=== PATIENT | female | born 1950 | race Caucasian/White ===

== ENCOUNTER 2017-06-09 | Inpatient (IN) | payer MEDICARE, MEDICAID, SELFPAY ==
[2017-06-09] VITALS (14 sets, daily range): BP systolic 129–176; BP diastolic 70–91; PULSE 64–98; RESP 15–95; TEMP 36.6–36.7; O2SAT 92–96; BMI 21.9; BMI 22.6; BMI 22.7
--- NOTE | 2017-06-09 00:57 | EKG12_ITS ---
Test Reason : CP Blood Pressure : / mmHG Vent. Rate : 087 BPM Atrial Rate : 087 BPM P-R Int : 152 ms QRS Dur : 088 ms QT Int : 374 ms P-R-T Axes : 078 072 072 degrees QTc Int : 450 ms Normal sinus rhythm Normal ECG Confirmed by VIANCA HUTCHINSON ([id number]), sports editor ELSA FLORIAN ([id number]) on 06/10/2017 11:34:01 AM Referred By: TRACE Confirmed By:VIANCA HUTCHINSON
--- NOTE | 2017-06-09 00:57 | CT_ITS ---
STUDY: CT ABDOMEN AND PELVIS WITH CONTRAST REASON FOR EXAM: Female, 66 years old. Abdominal pain. History of pancreatic cancer RADIATION DOSAGE (If Supplied By Facility): CTDIvol = ( 10.59 ) mGy, DLP = ( 545.51 ) mGycm TECHNIQUE: Transaxial images were obtained from the dome of the diaphragm to the symphysis pubis without oral contrast. 100ML ml of Isovue 300 contrast was administered. Sagittal and coronal images were reconstructed. Individualized dose optimization techniques were used for this CT. COMPARISON: 04/21/2017 FINDINGS: There is dependent atelectasis versus scar formation at the lung bases. The visualized portions of the heart are within normal limits. There is a calcified lesion in the right posterior hepatic dome which is unchanged. There is mild to moderate intrahepatic biliary duct dilatation. Metallic common bile duct stent remains in place. Calcified stone is seen in the neck of the gallbladder with marked gallbladder wall thickening, unchanged from prior imaging.. Normal spleen. Pancreatic duct dilatation noted. There is subtle hypoattenuation within the uncinate process of the pancreas adjacent to the common bile duct stent. Normal bilateral adrenal glands. Normal right kidney. Normal left kidney. Normal bilateral ureters. There is a small hiatal hernia. Stomach is otherwise unremarkable. Dilated air and fluid-filled loops of small bowel seen throughout the left mid abdomen. Definitive point of transition seen in the left lower pelvic cavity immediately anterior to the left iliac vasculature and psoas major muscle on sequence 2 images 60 through 78. Ileal loops distal to this point are completely decompressed, as is the colon. Left lower quadrant colostomy is noted. The appendix is visualized and is normal. Moderate atherosclerotic calcification of the abdominal vasculature. Normal inferior vena cava. Normal retroperitoneum. Normal urinary bladder. There is free free fluid in the left paracolic gutter which tracks into the pelvis. There is no free air. Normal abdominal wall. Compression fracture deformity of the T12 vertebral body which is chronic. CT/Abdomen/Pelvis W IV Cont ONLY IMPRESSION: 1. Small bowel obstruction with focal transition point seen in the left mid pelvic cavity. 2. Cholelithiasis with marked gallbladder wall thickening, unchanged from prior imaging. 3. Ill-defined hypoattenuated lesion within the uncinate process of the pancreas abutting the indwelling metallic common bile duct stent, with associated moderate pancreatic duct dilatation, most consistent with pancreatic adenocarcinoma. 4. Free fluid tracking down the left paracolic gutter into the pelvis. 5. Partially calcified mass in the right posterior hepatic dome which is unchanged from prior imaging and which could be more definitively characterized with MR imaging of the liver. 6. Chronic T12 compression fracture deformity. Electronically Signed: Andi Cano MD at 3:43 EST Tel , Service support ,
[2017-06-09] MEDS: HYDROmorphone 1 MG/ML Syringe IV ×6 (01:05→22:49)
[2017-06-09] MEDS: Ondansetron 4 MG/2 ML Vial IV ×5 (01:05→19:09)
[2017-06-09] MEDS: 0.9% Normal Saline 1,000 ML 1000 ML IV (01:05)
--- NOTE | 2017-06-09 01:06 | ED.VISSUMM ---
- ER Visit Summary Date of Service: 06/09/17 Chief Complaint: Abdominal pain History of Present Illness: The patient is a 66 F with complicated past medical history significant for pancreatic cancer and recent hospitalization at [facility] for colonic perforation with ostomy placement presents to the emergency department with rather sudden onset abdominal pain. The patient has recent diagnosis of pancreatic cancer. She was on chemotherapy with the thought that it would shrink her tumor and then she would have surgical intervention. Her last chemotherapy was at the end of March. Early in April, she had sudden onset abdominal pain with vomiting. She was seen here in the emergency department and was found to have a colonic perforation. The patient was transferred to [facility]. There, she had primary ostomy done. She was on broad-spectrum antibiotics. Her postoperative course was complicated by ileus and pancreatic duct obstruction. She had NG placement and ERCP done. She was finally tolerating some oral and was started on TPN and was discharged home. She had been doing well until tonight. She had sudden onset sharp stabbing pain in the midepigastric area that goes to her back. She does describe nausea with vomiting. She did have output in her ostomy today. She denies any fevers or chills. She states this feels more like pancreatitis than her prior perforation. Physical Examination: Vital signs reviewed General: Well-nourished, well-developed Head: Normocephalic, atraumatic Eyes: Pupils equal and reactive, extraocular muscles intact Neck, supple, no lymphadenopathy Heart: Regular rate and rhythm Respiratory: No distress, clear bilaterally Abdomen: Soft, tender in the midepigastric area without rebound or guarding, nondistended, ostomy intact Back: Nontender Extremities: Nontender, no edema, no cords Skin: Normal color no rash Neuro: Alert and oriented, no focal or lateralizing deficits Test Results: [] Emergency Department Course and Treatment: IV was established. The patient was given analgesics and antiemetics. She had some improvement of pain but still had persistent pain. She was mostly tender in the left lateral abdomen. Her ostomy was intact. Screening labs do show marked leukocytosis of over 30,000. LFTs were normal. Lipase was normal. Patient went for CT of the abdomen and pelvis. She has evidence of small bowel obstruction with transition point in the left lower quadrant. There is free fluid, but no perforation or evidence of free air. NG was placed. With the patient's complicated medical history and recent multiple procedures at [facility], I did feel that it will would be best for the patient to be transferred back to [facility]. The patient was discussed with colorectal surgery, Dr. Flores. He did accept the patient in transfer. We are currently awaiting bed assignment. Patient will be transferred back to [facility] for continued management of her small bowel obstruction. Treatment Plan: Transfer Disposition: [] Impression: 1. Acute small bowel obstruction 2. Leukocytosis 3. Abdominal pain 4. Dehydration 5. History of pancreatic cancer 6. Recent partial colectomy with ostomy at [facility] This note was generated with [employer] dictation software. It may contain incorrect words, spelling, and punctuation that were not noted in review of the chart prior to signing ED Disposition - Plan for ED Patient: Chief Complaint: Nausea/Vomiting Referrals: Jayme Cummings MD [Primary Care Provider] -
[2017-06-09 01:52] LABS: Hematocrit 34.1 % (37-47); Hemoglobin 10.7 g/dl (12.0-15.0); Mean Corp Hgb Conc 31.4 g/gl (32-36); Mean Corpuscular Hgb 28.1 pg (27.0-32.0); Mean Corpuscular Volume 89.5 fL (81-99); Mean Platelet Vol. 10.7 fl (6.2-12.0); Platelet Count 351 K/mm3 (150-450); RBC Distribution Width SD 51.7 fl (35.1-43.9); Red Blood Count 3.81 M/mm3 (4.2-5.4)
[2017-06-09 01:56] LABS: Differential Indicated MANUAL DIFF; POSITIVE COUNT YES; POSITIVE DIFFERENTIAL YES; POSITIVE MORPHOLOGY YES; White Blood Count 32.1 K/mm3 (4.4-11.0)
--- NOTE | 2017-06-09 01:57 | ED.RN ---
LAB CALLS WITH CRITICAL RESULT, WBC 32.1, DR. WEST MADE AWARE.
[2017-06-09 02:09] LABS: Eosinophil 1 % (0-5); Lymphocyte 3 % (19-41); Metamyelocyte 2 % (0-1); Monocyte 8 % (0-10); Neutrophil-Band 1 % (0-5); Neutrophil-Segmented 85 % (47-70); Platelet Estimate ADEQUATE (ADEQ); Red Cell Morphology NORM C+C NORMAL (NORM C&C); Total Cells Counted 100 (MANUAL DIFF)
[2017-06-09 02:10] LABS: Absolute Lymphocyte Count 0.96 X10^3/ul (0.83-4.51); Absolute Neutrophil Count 27.6 X10^3/uL (2.0-7.7); Lymphocyte # 0.96 X10^3/ul (4.0); Neutrophil # 27.57 X10^3/uL (2.7-7.7)
[2017-06-09 04:20] LABS: ALB/GLOB Ratio 0.6 RATIO (0.9-2.4); AST(SGOT) 23 U/L (15-37); Alanine Aminotransfer ALT/SGPT 27 U/L (12-78); Albumin, Serum 2.9 g/dL (3.4-5.0); Alkaline Phosphatase 97 U/L (45-117); Anion Gap 11 (5-15); BUN 26 mg/dL (7-18); Calcium,Total 8.7 mg/dL (8.5-10.1); Chloride 100 mmol/L (98-107); Creatinine, Serum 0.74 mg/dL (0.55-1.02); EST Glomerular Filtration Rate 83 mL/min (>60); Est Glom Filt Rate - Afr Amer 100 mL/min (>60); Estimated Creatinine Clearance 44.54 ml/min; Globulin 4.7 g/dL (2.2-4.2); Glucose 332 mg/dL (70-110); Lipase 184 U/L (73-393); Potassium 4.5 mmol/L (3.5-5.1); Protein, Total 7.6 g/dL (6.4-8.2); Sodium Level 134 mmol/L (136-145)
--- NOTE | 2017-06-09 04:22 | RAD_ITS ---
STUDY: X-RAY - ABDOMEN/PELVIS REASON FOR EXAM: Female, 66 years old. Is a gastric tube placement. TECHNIQUE: AP supine abdomen. COMPARISON: CT abdomen pelvis June 09, 2017. FINDINGS: Normal visualized lung bases. Nasogastric tube tip in the left upper quadrant and region of the gastric fundus. Vertically oriented common duct stent. Slightly lateral to the stent is a 1.2 cm gallstone noted on the prior CT scan. Dilated loops of mid jejunum left abdomen noted previously. There is no demonstrated free abdominal air. The visualized liver, spleen and kidneys are grossly normal in size and morphology. Normal soft tissue structures. Normal visualized osseous structures. RAD/Abdomen Single View (Portable) IMPRESSION: Nasogastric tube tip in the gastric fundus. Mid small bowel obstruction noted previously. Cholelithiasis. Common duct stent. Electronically Signed: Josué Dasilva MD at 5:49 EST , Service support ,
[2017-06-09 04:30] LABS: Bacteria 0 SEEN /hpf (None Seen); Mucous, Urine 0 SEEN /hpf (<or=2+); Red Blood Cells-Urine 0 SEEN /hpf (0-5); White Blood Cells 0 SEEN /hpf (0-5)
[2017-06-09] MEDS: 0.9% Normal Saline 1,000 ML 999 ML IV (04:38)
[2017-06-09 04:51] LABS: Color, Urine Yellow (Yellow); Glucose, Dipstick 1000 mg/dl (Normal); Urine Bilirubin Dipstick Negative (Negative); Urine Clarity Sl. Cloudy (Clear)
[2017-06-09 04:52] LABS: Amorphous Sediment 1+ URATE; Ketone-Dipstick Negative (Negative); Leukocyte Esterase-Dipstick Negative /ul (Negative); Nitrite-Dipstick Negative (Negative); Occult Blood-Urine Negative /ul (Negative); Protein-Dipstick Negative (Negative); Specific Gravity, Urine 1.015 (1.002-1.030); Squamous Epithelial Cells - UA 0-5 SEEN /hpf (5-10); Urine Urobilinogen Normal (Normal)
[2017-06-09 05:41] LABS: Reflex Lactate? Y
[2017-06-09] MEDS: 0.9% Normal Saline 1,000 ML 125 ML IV ×2 (06:17→15:02)
[2017-06-09 06:29] LABS: Lactic Acid 1.1 mmol/L (0.4-2.0)
--- NOTE | 2017-06-09 15:18 | ED.VISSUMM ---
- ER Visit Summary Date of Service: 06/09/17 Chief Complaint: [Abdominal pain] History of Present Illness: The patient is a 66 F [presented to the emergency department with abdominal pain and was initially seen by Dr. Chuy Murray and diagnosed with a small bowel obstruction. Patient was discussed with [facility] and arrangements were made for patient to be transferred to the [facility]. After 15 hours in our emergency department we still do not have a bed available at the [facility]. Patient has been medicated with Dilaudid for her pain and has been receiving IV fluids. We were told that they may not have a bed available for several days. The patient does not want to be transferred anywhere other than the [facility]. At this point I discussed case with our hospitalist and Dr. Patricia Warren her general surgeon on-call who agreed to admit the patient at this facility until a bed becomes available at the [facility].] Physical Examination: [] Test Results: [] Emergency Department Course and Treatment: [] Treatment Plan: [] Disposition: [Admit] Impression: [Small bowel obstruction] This note was generated with [employer] dictation software. It may contain incorrect words, spelling, and punctuation that were not noted in review of the chart prior to signing ED Disposition - Plan for ED Patient: Chief Complaint: Nausea/Vomiting Referrals: Jayme Cummings MD [Primary Care Provider] -
--- NOTE | 2017-06-09 15:21 | ED.DCSUM_ITS ---
- ER Visit Summary Date of Service: 06/09/17 Chief Complaint: [Abdominal pain] History of Present Illness: The patient is a 66 F [presented to the emergency department with abdominal pain and was initially seen by Dr. Chuy Murray and diagnosed with a small bowel obstruction. Patient was discussed with [facility] and arrangements were made for patient to be transferred to the [facility]. After 15 hours in our emergency department we still do not have a bed available at the [facility]. Patient has been medicated with Dilaudid for her pain and has been receiving IV fluids. We were told that they may not have a bed available for several days. The patient does not want to be transferred anywhere other than the [facility]. At this point I discussed case with our hospitalist and Dr. Patricia Warren her general surgeon on- call who agreed to admit the patient at this facility until a bed becomes available at the [facility].] Physical Examination: [] Test Results: [] Emergency Department Course and Treatment: [] Treatment Plan: [] Disposition: [Admit] Impression: [Small bowel obstruction] This note was generated with [employer] dictation software. It may contain incorrect words, spelling, and punctuation that were not noted in review of the chart prior to signing ED Disposition - Plan for ED Patient: Chief Complaint: Nausea/Vomiting Referrals: Jayme Cummings MD [Primary Care Provider] -
--- NOTE | 2017-06-09 15:29 | PCM.HP.STD ---
Problem List (1) Small bowel obstruction Status: Acute (2) Pancreatic cancer Status: Chronic Qualifiers: Pancreatic malignancy location: unspecified Qualified Code(s): C25.9 - Malignant neoplasm of pancreas, unspecified (3) DM type 2 (diabetes mellitus, type 2) Status: Acute (4) Hypertension Status: Chronic History of Present Illness Date of Admission: 06/10/17 Chief Complaint: Vomiting, abdominal pain - 1 day duration 66 F with PMHx of pancreatic cancer, obstructive jaundice s/p ERCP with stent, with recent hospitalization at [facility] for colonic perforation with ostomy placement comes in with complains of upper abdominal pain, that started around 8pm the night before. It was associated with nausea and vomiting with some chills but no fever. Her last chemotherapy was at the end of March. She is on full liquid diet and TPN. At the time of being seen, her pain was 7/10, medicated with dilaudid. She had an NG tube passed and to intermittent suction. She has been in the ED for more than 15 hours waiting on a bed for transfer to the [facility]. Past Medical History Past Medical History (Chronic Problems): Chronic Problems Pancreatic cancer (Chronic) Hypertension (Chronic) Allergies No Known Allergies Allergy (Verified 06/09/17 00:05) Home Medications: Ambulatory Orders Medication Instructions Recorded Albuterol Inhaler [Ventolin Hfa 2 puff INHALATION Q4H PRN PRN 06/09/17 (SP)] Hydrocodone/Acetaminophen [[place] 1 each PO Q6H PRN 06/09/17 5-325 Tablet] Insulin Glargine,Hum.rec.anlog 16 unit SQ QHS 06/09/17 [Lantus] Lisinopril [Zestril] 10 mg PO DAILY 06/09/17 Metformin HCl 500 mg PO BID 06/09/17 Omeprazole 40 mg PO DAILY 06/09/17 Ondansetron [Zofran] 8 mg PO Q8H PRN PRN 06/09/17 Surgical History: - - s/p colostomy, ERCP with stent placement Psychiatric History: No pertinent psych hx [employer] 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 Denies: Fever, Weight Change Eyes: Denies: Blurred vision, Cataracts, Drainage HEENT: Denies: Difficulty Hearing, Difficulty Swallowing, Head Aches, Sinus Congestion, Sinus Drainage Cardiovascular: Denies: Chest Pain, Claudication, Light Headedness, Palpitations Respiratory: Denies: Cough, Shortness of breath at rest, Shortness of breath upon exertion, Sputum production Gastrointestinal: Reports: Abdominal Pain, Nausea, Vomiting, - - No output from her stoma. Denies: Constipation, Diarrhea, Hematemesis, Hematochezia Genitourinary: Denies: Dysuria, Frequency Musculoskeletal: Denies: Joint Pain, Joint stiffness, Joint swelling, Joint Tenderness Skin: Denies: Rash, Wounds Neurological: Denies: Difficulty swallowing, Focal weakness, Numbness, Tingling Psychiatric: Denies: Anxiety, Depression, Homicidal Ideations, Suicidal Ideations Endocrine: Denies: Change in Body Habitus Hematologic/ Lymphatic: Denies: Easy Bruising, Easy Bleeding VTE Information - Inpt Only VTE Present on Admission: No VTE Pharm Prophylaxis ordered?: Yes Patient Problems: Active and Suspected Problems Small bowel obstruction (Acute) DM type 2 (diabetes mellitus, type 2) (Acute) - Physical Exam General: Alert, Oriented x3, Cooperative, No apparent distress, - - NG tube in situ HEENT: Atraumatic, PERRLA, EOMI, Normocephalic Oral: Moist Mucosa Neck: Supple Lungs: Clear to auscultation, Normal air movement Cardiovascular: Regular rate, No murmurs Abdomen: Soft, Non-Distended, Hypoactive Bowel Sounds, Tender - over the upper abdomen Extremities: No edema Skin: No rashes, No breakdown Musculoskeletal: No Tenderness to Palpation of Joints or Extremities Neurological: Cranial nerves II-XII grossly intact Psych/Mental Status: Normal Affect, Appropriate Vital Signs Temp Pulse Resp BP Pulse Ox 97.8 F 64 15 151/70 H 95 06/09/17 00:02 06/09/17 15:05 06/09/17 15:05 06/09/17 15:05 06/09/17 15:05 Oxygen Delivery Method Room Air Weight: 56.064 kg Body Mass Index (BMI) 21.9 Laboratory Tests Past 24 Hrs 06/09/17 06/09/17 06/09/17 01:05 01:05 01:05 WBC 32.1 H* RBC 3.81 L Hgb 10.7 L Hct 34.1 L MCV 89.5 MCH 28.1 MCHC 31.4 L RDW 16.0 H RDW Differential 51.7 H Plt Count 351 MPV 10.7 Neut % (Auto) Not Reportable Absolute Neuts (auto) 27.6 H Absolute Lymphs (auto) 0.96 Total Counted 100 Neutrophils % (Manual) 85 H Band Neutrophils % 1 Lymphocytes % (Manual) 3 L Monocytes % (Manual) 8 Eosinophils % (Manual) 1 Metamyelocytes % 2 H Diff Path Review May foll Platelet Estimate ADEQUATE RBC Morphology NORM C+C Sodium 134 L Potassium 4.5 Chloride 100 Carbon Dioxide 23.0 Anion Gap 11 BUN 26 H Creatinine 0.74 Estim Creat Clear Calc 44.54 Est GFR (MDRD) Af Amer 100 Est GFR (MDRD) Non-Af 83 BUN/Creatinine Ratio 35.0 H Glucose 332 H Lactic Acid 2.0 Calcium 8.7 Total Bilirubin 0.20 AST 23 ALT 27 Alkaline Phosphatase 97 Total Protein 7.6 Albumin 2.9 L Globulin 4.7 H Albumin/Globulin Ratio 0.6 L Lipase 184 Urine Color Urine Clarity Urine pH Ur Specific [place] Urine Protein Urine Glucose (UA) Urine Ketones Urine Occult Blood Urine Nitrite Urine Bilirubin Urine Urobilinogen Ur Leukocyte Esterase Urine RBC Urine WBC Ur Squamous Epith Cells Amorphous Sediment Urine Bacteria Urine Mucus 06/09/17 06/09/17 03:00 05:52 WBC RBC Hgb Hct MCV MCH MCHC RDW RDW Differential Plt Count MPV Neut % (Auto) Absolute Neuts (auto) Absolute Lymphs (auto) Total Counted Neutrophils % (Manual) Band Neutrophils % Lymphocytes % (Manual) Monocytes % (Manual) Eosinophils % (Manual) Metamyelocytes % Diff Path Review Platelet Estimate RBC Morphology Sodium Potassium Chloride Carbon Dioxide Anion Gap BUN Creatinine Estim Creat Clear Calc Est GFR (MDRD) Af Amer Est GFR (MDRD) Non-Af BUN/Creatinine Ratio Glucose Lactic Acid 1.1 Calcium Total Bilirubin AST ALT Alkaline Phosphatase Total Protein Albumin Globulin Albumin/Globulin Ratio Lipase Urine Color Yellow Urine Clarity Sl. Cloudy Urine pH 6.0 Ur Specific [place] 1.015 Urine Protein Negative Urine Glucose (UA) 1000 H Urine Ketones Negative Urine Occult Blood Negative Urine Nitrite Negative Urine Bilirubin Negative Urine Urobilinogen Normal Ur Leukocyte Esterase Negative Urine RBC 0 SEEN Urine WBC 0 SEEN Ur Squamous Epith Cells 0-5 SEEN Amorphous Sediment 1+ URATE Urine Bacteria 0 SEEN Urine Mucus 0 SEEN Assessment/Plan Active and Suspected Problems Small bowel obstruction (Acute) DM type 2 (diabetes mellitus, type 2) (Acute) 66y/o with PMHx of pancreatic cancer, on chemotherapy, last chemo was in March, s/p colostomy for recent colonic perforation , comes in with abdominal pain, nausea and vomiting. 1. Abdominal pain, nausea and vomiting secondary to SBO, in a patient with pancreatic cancer, seen on CT scan of abdomen with focal transition point in the left mid pelvic cavity, [facility] Plan: Admit to the [facility] surg floor, IVF, pain control, zofran prn, continue on NG tube suction and TPN, general surgery consult 2. Type 2 DM, on insulin, continue home regimen 3. Hypertension, controlled, on Lisinopril, will hold for now, and give prn hydralazine 4. Leucocytosis, likely reactive, no specific source of infection, blood and urine cultures are pending, will continue on Zosyn IV 5. DVT PPx - Lovenox SC Clinical Impression(s) from Imaging Studies Abdomen/Pelvis CT 06/09/17 00:57 IMPRESSION: 1. Small bowel obstruction with focal transition point seen in the left mid pelvic cavity. 2. Cholelithiasis with marked gallbladder wall thickening, unchanged from prior imaging. 3. Ill-defined hypoattenuated lesion within the uncinate process of the pancreas abutting the indwelling metallic common bile duct stent, with associated moderate pancreatic duct dilatation, most consistent with pancreatic adenocarcinoma. 4. Free fluid tracking down the left paracolic gutter into the pelvis. 5. Partially calcified mass in the right posterior hepatic dome which is unchanged from prior imaging and which could be more definitively characterized with MR imaging of the liver. 6. Chronic T12 compression fracture deformity. Electronically Signed: Andi Cano MD at 3:43 EST Tel , Service support , KUB X-Ray 06/09/17 04:22 IMPRESSION: Nasogastric tube tip in the gastric fundus. Mid small bowel obstruction noted previously. Cholelithiasis. Common duct stent. Electronically Signed: Josué Dasilva MD at 5:49 EST , Service support , Code Visit Inpatient E&M: 72070 Init Hosp L3
[2017-06-09 15:33] LABS: Pathologist Review Reviewed
--- NOTE | 2017-06-09 16:53 | CON.PCM_ITS ---
- Consult Date of Consult: 06/09/17 - Reason for Consult Chief Complaint: abdominal pain History of Present Illness: Mrs tran is a 66 yo female who was diagnosed with pancreatic cancer and had obstructive jaundice as presenting symptoms, FNA results came back as adenocarcinoma and she had an ERCP with bare metal stent placement. She also was a part of SWOG trial and was on Gemcitabine/ Paclitaxel. After her second infusion she had severe constipation and had perforated diverticulitis, had an emergent Exploratory laparotomy and susanne procedure with Dr Hernandez on 04/21/17 She was discharged from the hospital on TPN and FLD 05/11/17 has some signs and symptoms of partial small bowel obstruction and will remain on TPN. Whipple procedure planned for midMarch. Last chemo treatment was in late March. Patient with persistent elevated WBC - unknown etiology, was empirically treated with antibiotics Past Medical History: Brain tumor (benign) 1980 COPD (chronic obstructive pulmonary disease) Diabetes mellitus, type II GERD (gastroesophageal reflux disease) HTN (hypertension) Lyme disease [address] Hernandez, Dr. Sanford-oncology. Surgery-Dr. Choi Perforation of sigmoid colon ) Past Surgical History: COLONOSCOPY 2016 normal, repeat age 73. EGD EUS 03/08/2017 ERCP 03/08/2017 EXCISION OF BRAIN TUMOR 1980 PARTIAL COLECTOMY W/POUCH CREATION 04/2017 PAST SURGICAL HISTORY OF 03/2017 port placement PAST SURGICAL HISTORY OF 04/22/2017 Exploratory laparotomy, sigmoid colectomy with end descending colostomy, Susanne's pouch and drainage of pelvic abscess TUBAL LIGATION 1982 Medications: glimepiride (AMARYL) 1 mg tablet Take 1 tablet by mouth daily with breakfast. oxyCODONE IR (ROXICODONE) 5 mg immediate release tablet Take 1 tablet by mouth every 6 hours as needed for Pain. ondansetron (ZOFRAN, HYDROCHLORIDE,) 4 mg tablet Take 1 tablet by mouth every 8 hours as needed (for nausea.). lisinopril (ZESTRIL, PRINIVIL) 10 mg tablet Take 10 mg by mouth once daily. Omeprazole 40 mg capsule Take 40 mg by mouth once daily. acetaminophen (TYLENOL) 325 mg tablet Take 2 tablets by mouth every 6 hours. hydrOXYzine HCl (ATARAX) 25 mg tablet Take 1 tablet by mouth every 4 hours as needed for Itching/Rash. CALCIUM CARBONATE/VITAMIN D3 (CALCIUM 600 + D ORAL) Take 600 mg by mouth once daily. Allergies: Has no known drug allergies Social history: TOB use Former Smoker; 1965 - 03/04/2017; Smoked 1 pack/day for 52 years; Smoked: Cigarettes, Pipe Review of Systems: General - complaint of fatigue, denies fevers Cardiovascular denies chest pain Pulmonary denies coughing up blood Gastrointestinal as per HPI Neurological denies seizures Genitourinary denies blood in urine Hematological denies spontaneous/prolonged bleeding Skin denies open non healing wounds Musculoskeletal has back pain Endocrine has diabetes, has known pancreatic cancer Psychological denies hallucinations Physical examination: Vital signs Temp 98.7F BP 154/88f General WD/WN WF in no apparent distress, alert and oriented, not septic appearing HEENT Normocephalic. EOM intact with sclera clear and no icterus noted. Neck is supple with no jugular venous distention noted. Trachea is midline. Lungs normal breath sounds in all lung manley. No rales/rhonchi/wheezing noted. No labored breathing noted, such as retractions. Heart normal S1 and S2 auscultated. No rubs/clicks/murmurs noted. Normal size and location by auscultation. Abdomen soft, stoma - healthy appearing in left abdomen, some bowel sounds noted Extremities no calf tenderness noted. Genitourinary/Rectal deferred Skin no rashes noted. Normal skin integrity. Neurological no focal deficits noted Psychological normal affect, patient is calm and appropriate Impression: abdominal pain - small bowel obstruction known pancreatic cancer - resectable, on SWOG protocol with chemotherapy, then will undergo Whipple had perforated diverticulitis earlier this month - s/p sigmoid colon resection and Sellers's elevated WBC - Discussion/Plan: I have discussed the above with the patient. Continue with NG tube decompression. Continue with FLORIDALMA. Supportive care with above. Patient has chronic partial small bowel obstruction. Awaiting Whipple procedure - July. I have answered all questions to the patient?s satisfaction and the patient has no further questions.
[2017-06-09] MEDS: Piperacil/Tazobactam 3.375 GM/50 ML ML IV ×2 (16:55→22:52)
[2017-06-09] MEDS: 0.9% NaCl PICC Flush IV ×2 (19:09→22:49)
[2017-06-09 19:21] LABS: Bedside Glucose 129 mg/dL (70-110)
--- NOTE | 2017-06-09 19:35 | NURSING ---
STATES, PER HOME PROTOCOL HE ADDS 20UNITS OF NOVOLIN R AND 10ML OF INFUVITE TO TPN NIGHTLY. SHOW THIS RN THE SYRINGE/VIAL WITH RX INFO ON THEM.
[2017-06-10] VITALS (7 sets, daily range): BP systolic 121–160; BP diastolic 62–69; PULSE 77–99; RESP 16–18; TEMP 36.7–37.2; O2SAT 93–95
[2017-06-10 00:16] LABS: Bedside Glucose 275 mg/dL (70-110)
[2017-06-10] MEDS: Piperacil/Tazobactam 3.375 GM/50 ML ML IV ×2 (05:29→14:34)
[2017-06-10 05:36] LABS: Bedside Glucose 222 mg/dL (70-110)
[2017-06-10 07:17] LABS: Anion Gap 9 (5-15); BUN 20 mg/dL (7-18); BUN/Creat Ratio 39.8 RATIO (10-20); Chloride 104 mmol/L (98-107); EST Glomerular Filtration Rate 130 mL/min (>60); Est Glom Filt Rate - Afr Amer 157 mL/min (>60); Estimated Creatinine Clearance 44.54 ml/min; Glucose 195 mg/dL (70-110); Potassium 4.1 mmol/L (3.5-5.1); Sodium Level 138 mmol/L (136-145)
[2017-06-10] MEDS: Enoxaparin 40 MG/0.4 ML Syringe SC (09:13)
--- NOTE | 2017-06-10 10:42 | PCM.PN.SRG ---
Patient Problems: Active and Suspected Problems Small bowel obstruction (Acute) DM type 2 (diabetes mellitus, type 2) (Acute) Subjective: patient reports slight improvement, has left flank pain - but this may be due to pancreatic cancer, notes still bloating on left side of abdomen at stoma site no real gas in the bag (patient noted a few bubbles) - Physical Exam General: Alert Oral: Moist Mucosa Neck: Supple Abdomen: Soft, Hypoactive Bowel Sounds Vital Signs Temp Pulse Resp BP Pulse Ox 98.0 F 93 18 132/62 H 94 06/10/17 09:07 06/10/17 09:07 06/10/17 09:07 06/10/17 09:07 06/10/17 09:07 Oxygen Delivery Method Room Air Weight: 58.1 kg Body Mass Index (BMI) 22.6 Intake and Output for Last 24 Hours 06/08/17 06/09/17 06/10/17 23:59 23:59 23:59 Intake Total 746 / 746 1673 / 1673 Output Total 1425 / 1425 2875 / 2875 Balance -679 / -679 -1202 / -1202 Laboratory Tests Past 24 Hrs 06/10/17 06/10/17 05:15 05:15 WBC Pending RBC Pending Hgb Pending Hct Pending MCV Pending MCH Pending MCHC Pending RDW Pending RDW Differential Pending Plt Count Pending Neut % (Auto) Pending Absolute Neuts (auto) Pending Total Counted Pending Sodium 138 Potassium 4.1 Chloride 104 Carbon Dioxide 25.0 Anion Gap 9 BUN 20 H Creatinine 0.50 L Estim Creat Clear Calc 44.54 Est GFR (MDRD) Af Amer 157 Est GFR (MDRD) Non-Af 130 BUN/Creatinine Ratio 39.8 H Glucose 195 H Calcium 8.0 L POC Glucose 06/10/17 06/10/17 06/09/17 05:18 00:04 19:13 POC Glucose 222 H 275 H 129 H Assessment/Plan Active and Suspected Problems Small bowel obstruction (Acute) DM type 2 (diabetes mellitus, type 2) (Acute) Impression: known partial small bowel obstruction - probably post op from perforated diverticulitis surgery, but patient is scheduled for surgery March chronic elevated WBC - unknown etiology, noted upon discharge at Plan: continue supportive care Continue NG tube decompression awaiting transfer to -main but no beds available Suspect that SBO may resolve no surgical indications at this time
[2017-06-10] MEDS: Ondansetron 4 MG/2 ML Vial IV ×2 (11:16→20:58)
[2017-06-10 12:50] LABS: Bedside Glucose 158 mg/dL (70-110)
--- NOTE | 2017-06-10 12:55 | NURSING ---
spoke with [facility] transfer line [facility]- states have accepting md in colorectal surgery, states pt is on the priority list, states no beds available yet, unsure of when will have bed, when bed available will call to ms2- verified [facility] has the correct number for nurses station and it is correct
[2017-06-10] MEDS: HYDROmorphone 1 MG/ML Syringe IV ×2 (14:34→20:58)
[2017-06-10] MEDS: 0.9% NaCl PICC Flush IV ×2 (14:35→20:58)
--- NOTE | 2017-06-10 14:35 | PN_ITS ---
Patient Problems: Active and Suspected Problems Small bowel obstruction (Acute) DM type 2 (diabetes mellitus, type 2) (Acute) Subjective: Patient seen and examined. Patient says her pain is controlled. Pain is 4/10. Waiting on [facility] for transfer. Discussed with Dr. Warren, will continue with conservative management. Objective: Physical Exam General: Alert, Oriented x3, Cooperative, No apparent distress, - - NG tube in situ HEENT: Atraumatic, PERRLA, EOMI, Normocephalic Oral: Moist Mucosa Neck: Supple Lungs: Clear to auscultation, Normal air movement Cardiovascular: Regular rate,HS I +II, no murmurs Abdomen: Soft, Non-Distended, Hypoactive Bowel Sounds, Tender - over the upper abdomen, colostomy bags Extremities: No edema Skin: No rashes, No breakdown Musculoskeletal: No Tenderness to Palpation of Joints or Extremities Neurological: Cranial nerves II-XII grossly intact Psych/Mental Status: Normal Affect, Appropriate Vitals/I&O's: Vital Signs Temp Pulse Resp BP Pulse Ox 98.0 F 94 18 132/62 H 94 06/10/17 09:07 06/10/17 11:06 06/10/17 09:07 06/10/17 09:07 06/10/17 09:07 Oxygen Delivery Method Room Air Weight: 58.1 kg Body Mass Index (BMI) 22.6 Intake and Output for Last 24 Hours 06/08/17 06/09/17 06/10/17 23:59 23:59 23:59 Intake Total 746 / 746 1673 / 1673 Output Total 1425 / 1425 2875 / 2875 Balance -679 / -679 -1202 / -1202 Laboratory Results 06/09/17 19:13: POC Glucose 129 H 06/10/17 00:04: POC Glucose 275 H 06/10/17 05:15: WBC Pending, RBC Pending, Hgb Pending, Hct Pending, MCV Pending , MCH Pending, MCHC Pending, RDW Pending, RDW Differential Pending, Plt Count Pending, Neut % (Auto) Pending, Absolute Neuts (auto) Pending, Total Counted Pending 06/10/17 05:15: Sodium 138, Potassium 4.1, Chloride 104, Carbon Dioxide 25.0, Anion Gap 9, BUN 20 H, Creatinine 0.50 L, Estim Creat Clear Calc 44.54, Est GFR (MDRD) Af Amer 157, Est GFR (MDRD) Non-Af 130, BUN/Creatinine Ratio 39.8 H, Glucose 195 H, Calcium 8.0 L 06/10/17 05:18: POC Glucose 222 H 06/10/17 12:41: POC Glucose 158 H Current Medications Dextrose (D50w Syringe) 0 gm IV X1 PRN; Protocol PRN Reason: Hypoglycemia Enoxaparin Sodium (Lovenox) 40 mg SC DAILY@1000 KAMI Last Admin: 06/10/17 09:13 Dose: 40 mg Glucagon () 1 mg IM .X1 PRN PRN Reason: Hypoglycemia Heparin Sodium (Beef Lung) (Heparin 500 Unit/5 Ml (100/Ml)) 500 unit IV UD PRN PRN Reason: HEPARIN FLUSH Heparin Sodium (Beef Lung) (Heparin 500 Unit/5 Ml (100/Ml)) 500 unit IV UD PRN PRN Reason: HEPARIN FLUSH Hydromorphone HCl (Dilaudid) 1 mg IV Q2H PRN PRN PRN Reason: SEVERE PAIN (6-10/10) Last Admin: 06/09/17 22:49 Dose: 1 mg Potassium Chloride/Sodium Chloride () 1,000 mls @ 125 mls/hr IV .Q8H KAMI Last Admin: 06/10/17 11:22 Dose: 125 mls/hr Piperacillin Sod/Tazobactam Sod (Zosyn) 3.375 gm in 50 mls @ 12.5 mls/hr IV Q8 KAMI Last Admin: 06/10/17 05:29 Dose: 12.5 mls/hr Insulin Aspart (Novolog Flexpen (Bkc)) 0 units SC Q6 KAMI PRN Reason: Protocol Last Admin: 06/10/17 12:44 Dose: 1 units Magnesium Hydroxide (Milk Of Magnesia) 30 ml PO DAILY PRN PRN PRN Reason: Constipation Ondansetron HCl (Zofran) 4 mg IV Q6H PRN PRN PRN Reason: NAUSEA/VOMITING Last Admin: 06/10/17 11:16 Dose: 4 mg Promethazine HCl (Phenergan (Ll)) 6.25 mg IV Q4H PRN PRN PRN Reason: NAUSEA/VOMITING Last Admin: 06/09/17 22:49 Dose: 6.25 mg Sodium Chloride () 10 - 20 ml IV UD PRN PRN Reason: PICC FLUSH Last Admin: 06/09/17 22:49 Dose: 20 ml Sodium Chloride () 10 ml IV UD PRN PRN Reason: VAD FLUSH Assessment/Plan Active and Suspected Problems Small bowel obstruction (Acute) DM type 2 (diabetes mellitus, type 2) (Acute) 66y/o with PMHx of pancreatic cancer, on chemotherapy, last chemo was in March, s/p colostomy for recent colonic perforation , comes in with abdominal pain, nausea and vomiting. 1. Abdominal pain, nausea and vomiting secondary to small bowel obstruction, in a patient with pancreatic cancer, seen on CT scan of abdomen with focal transition point in the left mid pelvic cavity, awaiting main campus transfer. Will continue to treat conservatively NG suction, and IV fluids, TPN, with general surgery pending transfer. 2. Type 2 DM, will continue to monitor with accucheks and ISS 3. Hypertension, controlled, on Lisinopril, will hold for now, and give prn hydralazine 4. Leucocytosis, likely reactive, no specific source of infection, blood and urine cultures are pending, stable vitals, will follow-up on repeat blood work and dc antibiotics. 5. DVT PPx - Lovenox SC Code Visit Inpatient E&M: 77665 Subs Hosp L2
[2017-06-10 14:59] LABS: Absolute Lymphocyte Count 2.65 X10^3/ul (0.83-4.51); Basophil# 0.03 X10^3/uL; Basophil% 0.1 % (0-1); Eosinophil# 0.47 X10^3/uL; Eosinophils% 2.2 % (0-5); Hematocrit 29.9 % (37-47); Hemoglobin 9.2 g/dl (12.0-15.0); Lymphocyte # 2.65 X10^3/ul (4.0); Lymphocyte % 12.7 % (19-41); Mean Corp Hgb Conc 30.8 g/gl (32-36); Mean Corpuscular Volume 90.9 fL (81-99); Mean Platelet Vol. 10.9 fl (6.2-12.0); Monocyte# 2.52 X10^3/uL; Neutrophil # 15.02 X10^3/uL (2.7-7.7); Neutrophil % 71.9 % (47-70); Platelet Count 249 K/mm3 (150-450); RBC Distribution Width CV 16.3 % (11.6-14.6); RBC Distribution Width SD 53.5 fl (35.1-43.9); Red Blood Count 3.29 M/mm3 (4.2-5.4); White Blood Count 20.9 K/mm3 (4.4-11.0)
[2017-06-10 15:00] LABS: Differential Indicated SCAN CRITERIA MET; POSITIVE COUNT NO; POSITIVE DIFFERENTIAL YES; POSITIVE MORPHOLOGY YES
--- NOTE | 2017-06-10 16:04 | CHAPLAIN ---
Type of Pastoral Visit _x__ Initial Visit ___ Follow-up Visit ___ On-call Visit ___ General Patient Visit ___ Spiritual Assessment ___ Family Conference ___ Bereavement ___ Rapid Response ___ Code Blue ___ Other (describe below) Pastoral Care Referral From _x__ Patient ___ Family ___ Nurse ___ Physician ___ Ski Patrol Officer ___ Air Cargo Specialist ___ Other (describe below) Sacrament/Intervention _x__ Active listening ___ Anointing ___ Yarsanism ___ Bereavement ___ Communion ___ Keri exploration ___ ___ Life review ___ Prayer ___ Reconciliation ___ Sacrament of Sick _x__ Supportive presence ___ Wedding ___ Other (describe below) Pastoral Comments
[2017-06-10 17:50] LABS: Bedside Glucose 115 mg/dL (70-110)
[2017-06-10] MEDS: Phenol/Sodium Phenolate 180ML 5 SPRAY MM (20:57)
[2017-06-10 23:41] LABS: Bedside Glucose 221 mg/dL (70-110)
--- NOTE | 2017-06-11 01:22 | NURSING ---
[facility] called with bed availability, VS checked, BG checked, NG tube flushed at this time, ore charger calling for transport at this time. This RN will call and notify .
[2017-06-11 01:23] VITALS: BP 132/71; PULSE 93; RESP 18; TEMP 37.2; O2SAT 98
[2017-06-11 01:26] LABS: Bedside Glucose 153 mg/dL (70-110)
--- NOTE | 2017-06-11 01:36 | NURSING ---
Patients Bill called and notified of [facility] transfer and bed number given.
--- NOTE | 2017-06-11 01:43 | NURSING ---
[facility]
--- NOTE | 2017-06-11 02:11 | NURSING ---
Transport here for patient at this time.
--- NOTE | 2017-06-11 02:16 | NURSING ---
Patient being transported to [facility] with IVF and TPN infusing at this time, see EMAR.
--- NOTE | 2017-06-11 10:30 | PCM.DC ---
- Discharge Diagnoses Reason(s) for Visit for Discharge Instructions: Abdominal pain, vomiting You will use the following diet at home:: Other - TPN Allergies/Adverse Reactions: Allergies No Known Allergies Allergy (Verified 06/09/17 00:05) Medications to take at Discharge Albuterol Inhaler [Ventolin Hfa (SP)] 2 puff INHALATION Q4H PRN PRN 06/09/17 Hydrocodone/Acetaminophen [[place] 5-325 Tablet] 1 each PO Q6H PRN 06/09/17 Insulin Glargine,Hum.rec.anlog [Lantus] 16 unit SQ QHS 06/09/17 Lisinopril [Zestril] 10 mg PO DAILY 06/09/17 Metformin HCl 500 mg PO BID 06/09/17 Omeprazole 40 mg PO DAILY 06/09/17 Ondansetron [Zofran] 8 mg PO Q8H PRN PRN 06/09/17 Primary Care Physician: Jayme Cummings MD [Primary Care Provider] - Proposed Discharge Date: 06/11/17
--- NOTE | 2017-06-11 10:31 | DS.PCM_ITS ---
Discharge Date and Diagnosis Date of Admission: 06/10/17 Date of Discharge: 06/11/17 - Primary Discharge Diagnosis Small bowel obstruction - Secondary Discharge Diagnosis Chronic Problems Pancreatic cancer (Chronic) Hypertension (Chronic) Hospital Course and Treatment Imaging Results: Clinical Impression(s) from Imaging Studies Abdomen/Pelvis CT 06/09/17 00:57 IMPRESSION: 1. Small bowel obstruction with focal transition point seen in the left mid pelvic cavity. 2. Cholelithiasis with marked gallbladder wall thickening, unchanged from prior imaging. 3. Ill-defined hypoattenuated lesion within the uncinate process of the pancreas abutting the indwelling metallic common bile duct stent, with associated moderate pancreatic duct dilatation, most consistent with pancreatic adenocarcinoma. 4. Free fluid tracking down the left paracolic gutter into the pelvis. 5. Partially calcified mass in the right posterior hepatic dome which is unchanged from prior imaging and which could be more definitively characterized with MR imaging of the liver. 6. Chronic T12 compression fracture deformity. Electronically Signed: Andi Cano MD at 3:43 EST Tel , Service support , KUB X-Ray 06/09/17 04:22 IMPRESSION: Nasogastric tube tip in the gastric fundus. Mid small bowel obstruction noted previously. Cholelithiasis. Common duct stent. Electronically Signed: Josué Dasilva MD at 5:49 EST , Service support , Consultations 06/09/17 17:35 Consult: Onc/Wound/marine service station attendant Routine Comment: Reason for Consult:: STOMA Comments:: APPLIANCE CHANGED 06/08 AT HOME Operations: None Procedures: None Summary of Care Provided: 66y/o with PMHx of pancreatic cancer, on chemotherapy, last chemo was in March, s/p colostomy for recent colonic perforation admitted with abdominal pain, nausea and vomiting. Patient was seen in the ED, waited for more than 15 hours for transfer to [facility]. General surgery - Dr. Warren. 1. Abdominal pain, nausea and vomiting secondary to small bowel obstruction, in a patient with pancreatic cancer, seen on CT scan of abdomen with focal transition point in the left mid pelvic cavity, awaiting main campus transfer. Continue to treat conservatively NG suction, and IV fluids, TPN, with general surgery pending transfer. 2. Type 2 DM on insulin 3. Hypertension, controlled, Lisinopril held, managed on prn hydralazine. 4. Leucocytosis, likely reactive, no specific source of infection, blood and urine cultures are pending, stable vitals Discharge Diet: No Restrictions, - - NPO, TPN Home Medications: Medications to take at Discharge Albuterol Inhaler [Ventolin Hfa (SP)] 2 puff INHALATION Q4H PRN PRN 06/09/17 Hydrocodone/Acetaminophen [[place] 5-325 Tablet] 1 each PO Q6H PRN 06/09/17 Insulin Glargine,Hum.rec.anlog [Lantus] 16 unit SQ QHS 06/09/17 Lisinopril [Zestril] 10 mg PO DAILY 06/09/17 Metformin HCl 500 mg PO BID 06/09/17 Omeprazole 40 mg PO DAILY 06/09/17 Ondansetron [Zofran] 8 mg PO Q8H PRN PRN 06/09/17 Primary Care Physician: Jayme Cummings MD [Primary Care Provider] - Disposition: Acute care Hospital Minutes spent on discharge:: 25 Patient Condition:: Stable Meaningful Use Info Meaningful Use Diagnoses (Choose all that apply): None applicable Code Visit Inpatient E&M: 02715 Disch Hosp
[2017-06-11 13:51] LABS: Pathologist Review Reviewed
== END 2017-06-11 02:19 | disposition short-term general hospital (02) | DRG 389 ==
LOC: ED 01:19 → MS2 15:41
PROVIDERS: Admitting Provider Internal Medicine; Emergency Provider Emergency Medicine; Family Provider Family Medicine; PCP Family Medicine; Visit Provider Internal Medicine
DX: K56.609 Unspecified intestinal obstruction, unspecified as to partial versus complete obstruction (principal); C25.9 Malignant neoplasm of pancreas, unspecified; E11.9 Type 2 diabetes mellitus without complications; I10 Essential (primary) hypertension; D72.829 Elevated white blood cell count, unspecified; Z79.4 Long term (current) use of insulin; Z79.899 Other long term (current) drug therapy; Z93.3 Colostomy status; Z87.891 Personal history of nicotine dependence; Z90.49 Acquired absence of other specified parts of digestive tract
CPT/HCPCS: 74018; 74176; 80048; 80053; 81001; 82962; 83605; 83690; 85025; 93005; 97802; 99282; 99406; J7030; J7040; Q9967; A4216; J2405

== ENCOUNTER 2017-10-12 03:11 | Emergency (ER) | payer MEDICARE, SELFPAY ==
[2017-10-12 03:12] VITALS: BP 214/81; PULSE 91; RESP 16; TEMP 36.4; O2SAT 98; BMI 24.6
--- NOTE | 2017-10-12 03:32 | CT_ITS ---
STUDY: CT ABDOMEN AND PELVIS WITHOUT CONTRAST REASON FOR EXAM: Female, 66 years old. Nausea vomiting diarrhea RADIATION DOSAGE (If Supplied By Facility): CTDIvol = ( 6.05 ) mGy, DLP = ( 285.78 ) mGycm TECHNIQUE: Transaxial images were obtained from the dome of the diaphragm to the symphysis pubis with oral contrast, and without intravenous contrast. Sagittal and coronal images were reconstructed. Individualized dose optimization techniques were used for this CT. COMPARISON: 06/09/2017 FINDINGS: Interval development of multiple small nodules in both lung bases. This could represent metastatic disease. These measure up to 5 mm. The visualized portions of the heart are within normal limits. Pneumobilia. Cholelithiasis. Common bile duct stent. Normal spleen. There is now diffuse enlargement of the pancreatic head. Underlying progressing neoplasm is suspected. There is persistent dilation of the common bile duct. Normal bilateral adrenal glands. Normal right kidney. Normal left kidney. Gastrostomy tube in place. Normal small intestine. The distal colon has been resected. Left lower quadrant colostomy. The appendix is visualized and appears normal. There is diffuse atherosclerotic calcification of the abdominal aorta, without a demonstrated aneurysm. Normal inferior vena cava. Normal retroperitoneum. Normal urinary bladder. Normal abdominal wall. Stable remote T12 compression deformity. CT/Abdomen/Pelvis without Cont IMPRESSION: There is now diffuse enlargement of the pancreatic head. Underlying progressing neoplasm is suspected. Interval development of multiple pulmonary nodules concerning for metastatic disease. Cholelithiasis. No evidence of acute intestinal pathology or acute obstructive uropathy. Electronically Signed: Silverio Cai MD at 4:46 EDT Tel , Service support ,
[2017-10-12] MEDS: Ondansetron 4 MG/2 ML Vial IV (04:10)
[2017-10-12] MEDS: 0.9% Normal Saline 1,000 ML 1000 ML IV (04:10)
[2017-10-12] MEDS: Morphine 4 MG/ML Syringe IV ×2 (04:10→06:49)
[2017-10-12 04:32] LABS: Lactic Acid 1.4 mmol/L (0.4-2.0)
[2017-10-12 04:35] LABS: Hematocrit 34.7 % (37-47); Hemoglobin 11.4 g/dl (12.0-15.0); Mean Corp Hgb Conc 32.9 g/gl (32-36); Mean Corpuscular Volume 85.3 fL (81-99); Mean Platelet Vol. 11.7 fl (6.2-12.0); Platelet Count 231 K/mm3 (150-450); RBC Distribution Width CV 16.4 % (11.6-14.6); Red Blood Count 4.07 M/mm3 (4.2-5.4); White Blood Count 28.7 K/mm3 (4.4-11.0)
[2017-10-12 04:37] LABS: ALB/GLOB Ratio 0.7 RATIO (0.9-2.4); AST(SGOT) 17 U/L (15-37); Alanine Aminotransfer ALT/SGPT 25 U/L (13-56); Albumin, Serum 2.7 g/dL (3.2-5.0); Alkaline Phosphatase 217 U/L (45-117); Anion Gap 8 (5-15); BUN 20 mg/dL (7-18); BUN/Creat Ratio 36.4 RATIO (10-20); Calcium,Total 7.9 mg/dL (8.5-10.1); Chloride 102 mmol/L (98-107); Creatinine, Serum 0.55 mg/dL (0.55-1.02); EST Glomerular Filtration Rate 117 mL/min (>60); Est Glom Filt Rate - Afr Amer 141 mL/min (>60); Estimated Creatinine Clearance 44.54 ml/min; Globulin 3.9 g/dL (2.2-4.2); Glucose 293 mg/dL (74-106); Lipase 1814 U/L (73-393); Potassium 3.8 mmol/L (3.5-5.1); Protein, Total 6.6 g/dL (6.4-8.2); Sodium Level 139 mmol/L (136-145)
[2017-10-12 04:38] LABS: Differential Indicated MANUAL DIFF; POSITIVE COUNT NO; POSITIVE DIFFERENTIAL NO; POSITIVE MORPHOLOGY YES
[2017-10-12 05:01] LABS: Lymphocyte 1 % (19-41); Monocyte 14 % (0-10); Myelocyte 1 (0-0); Neutrophil-Segmented 84 % (47-70); Total Cells Counted 100 (MANUAL DIFF)
[2017-10-12 05:02] LABS: Absolute Lymphocyte Count 0.29 X10^3/ul (0.83-4.51); Absolute Neutrophil Count 24.1 X10^3/uL (2.0-7.7); Lymphocyte # 0.29 X10^3/ul (4.0); Platelet Estimate ADEQUATE (ADEQ); Red Cell Morphology NORM C+C NORMAL (NORM C&C)
[2017-10-12 05:12] VITALS: BP 177/65; PULSE 84; RESP 16; O2SAT 97
--- NOTE | 2017-10-12 05:43 | ED.VISSUMM ---
- ER Visit Summary Date of Service: 10/12/17 Chief Complaint: Nausea and vomiting, back pain History of Present Illness: The patient is a 66 F who presents with nausea and vomiting. She has a history of pancreatic cancer. She recently had small bowel obstruction with perforation. She underwent bowel resection colostomy and a gastric drain up at [facility]. She takes oxycodone for pain and is on TPN. She states that over the last 2 days she has developed increasing back pain nausea and vomiting and has been unable to tolerate any oral medications. No fevers. Physical Examination: Initial blood pressure 214/81 vitals otherwise unremarkable Moist mucous membranes Heart regular rate and rhythm Lungs are clear Abdomen soft nontender nondistended colostomy noted Alert Test Results: Laboratory studies notable for white blood cell count 28.7. Glucose 293. Lipase 1814. Lactic normal. CT of the abdomen and pelvis shows diffuse enlargement of the pancreatic head and interval development of multiple pulmonary nodules. Cholelithiasis noted. Emergency Department Course and Treatment: Patient was treated here with IV fluids morphine Zofran. She does have evidence of acute pancreatitis. Previously her lipase has been normal. Given her complicated medical history I did feel she would be best served by transfer back to [facility]. I spoke to Dr. Pino of oncology who accepted the patient and the patient will be transferred to that facility. Treatment Plan: [] Disposition: Transfer Impression: Metastatic pancreatic cancer Acute pancreatitis This note was generated with [employer] dictation software. It may contain incorrect words, spelling, and punctuation that were not noted in review of the chart prior to signing ED Disposition - Plan for ED Patient: Chief Complaint: Nausea/Vomiting Referrals: Jayme Cummings MD [Primary Care Provider] -
[2017-10-12 06:28] VITALS: BP 177/80; PULSE 76; RESP 18; TEMP 36.8; O2SAT 98
[2017-10-12 07:14] VITALS: BP 167/64; PULSE 89; O2SAT 94
--- NOTE | 2017-10-12 07:34 | ED.RN ---
pt waiting for transport squad. denies needs at this time.
[2017-10-12 14:17] LABS: Pathologist Review Reviewed
== END 2017-10-12 07:53 | disposition short-term general hospital (02) ==
LOC: ED 03:41
PROVIDERS: Emergency Provider Emergency Medicine; Family Provider Family Medicine; PCP Family Medicine
DX: K85.90 Acute pancreatitis without necrosis or infection, unspecified (principal); C25.9 Malignant neoplasm of pancreas, unspecified; C79.9 Secondary malignant neoplasm of unspecified site; K21.9 Gastro-esophageal reflux disease without esophagitis; E11.9 Type 2 diabetes mellitus without complications; I10 Essential (primary) hypertension; Z93.3 Colostomy status; Z79.4 Long term (current) use of insulin; Z79.891 Long term (current) use of opiate analgesic; Z79.51 Long term (current) use of inhaled steroids; Z79.899 Other long term (current) drug therapy
CPT/HCPCS: 36591; 74176; 80053; 83605; 83690; 85025; 96361; 96374; 96375; 96376; 99282; J2405